=== PATIENT | female | born 1990 | race Asian ===

== ENCOUNTER 2018-04-16 07:28 | Emergency (ER) | payer OTHER ==
[2018-04-16] MEDS: dexameTHASONE 20 MG/5 ML VIAL (J1100) IV (08:18)
== END 2018-04-16 09:28 | disposition home or self-care (01) ==
LOC: M ED 07:28
DX: L27.0 Generalized skin eruption due to drugs and medicaments taken internally (principal); Z95.0 Presence of cardiac pacemaker; I45.10 Unspecified right bundle-branch block
CPT/HCPCS: J1100

== ENCOUNTER 2018-06-09 22:31 | Emergency (ER) | payer OTHER ==
[2018-06-10] MEDS: DOXYCYCLINE HYCLATE 100 MG TAB PO (00:09)
[2018-06-13 00:07] LABS: IgG P18 AB Absent (.); IgG P23 AB Absent (.); IgG P28 AB Absent (.); IgG P30 AB Absent (.); IgG P39 AB Absent (.); IgG P41 AB Absent (.); IgG P45 AB Absent (.); IgG P58 AB Absent (.); IgG P66 AB Absent (.); IgG P93 AB Absent (.); IgM P23 AB Absent (.); IgM P39 AB Absent (.); IgM P41 AB Absent (.); LYME IgG WB INTERPRETATION Negative (.); LYME IgM WB INTERPRETATION Negative (.)
== END 2018-06-10 00:41 | disposition home or self-care (01) ==
LOC: M ED 22:31
DX: S50.862A Insect bite (nonvenomous) of left forearm, initial encounter (principal); W57.XXXA Bitten or stung by nonvenomous insect and other nonvenomous arthropods, initial encounter; Y92.89 Other specified places as the place of occurrence of the external cause; Q24.9 Congenital malformation of heart, unspecified; Z95.0 Presence of cardiac pacemaker; Z79.899 Other long term (current) drug therapy
CPT/HCPCS: 86617

== ENCOUNTER 2018-06-27 19:16 | Inpatient (IN) | payer OTHER ==
[2018-06-27] MEDS: tiZANidine 4 MG TAB PO (21:00)
[2018-06-27 21:21] LABS: HEMATOCRIT 42.8 % (36.0-47.0); HEMOGLOBIN 14.5 g/dl (12.0-15.5); MEAN CORPUSCULAR HEMOGLOBIN 27.9 pg (27.0-33.0); MEAN CORPUSCULAR HGB CONC 33.9 g/dl (32.0-36.5); MEAN CORPUSCULAR VOLUME 82.5 fl (80.0-96.0); PLATELET COUNT, AUTOMATED 320 10^3/uL (150-450); RED BLOOD COUNT 5.19 10^6/uL (4.00-5.40); RED CELL DISTRIBUTION WIDTH 12.3 % (11.5-14.5); WHITE BLOOD COUNT 8.5 10^3/uL (4.0-10.0)
[2018-06-27 21:26] LABS: CONTROL LINE HCG INT CTR LINE PRESENT; HCG, SERUM QUALITATIVE NEGATIVE (NEGATIVE)
[2018-06-27 21:40] LABS: ALBUMIN 4.5 GM/DL (3.2-5.2); ALBUMIN/GLOBULIN RATIO 0.96 (1.00-1.93); ALKALINE PHOSPHATASE 93 U/L (45-117); ALT/SGPT 57 U/L (12-78); ANION GAP 9 MEQ/L (8-16); AST/SGOT 54 U/L (7-37); BILIRUBIN,DIRECT 0.1 MG/DL (0.0-0.2); BILIRUBIN,TOTAL 0.4 MG/DL (0.2-1.0); BLOOD UREA NITROGEN 11 MG/DL (7-18); CALCIUM LEVEL 9.5 MG/DL (8.5-10.1); CARBON DIOXIDE LEVEL 26 MEQ/L (21-32); CHLORIDE LEVEL 105 MEQ/L (98-107); CREATININE FOR GFR 0.85 MG/DL (0.55-1.30); ETHYL ALCOHOL (ETHANOL) < 0.003 % (0.000-0.010); GLOMERULAR FILTRATION RATE > 60.0 (>60); GLUCOSE, FASTING 95 MG/DL (70-100); POTASSIUM SERUM 3.8 MEQ/L (3.5-5.1); SALICYLATE LEVEL 2.1 MG/DL (5.0-30.0); SODIUM LEVEL 140 MEQ/L (136-145); TOTAL PROTEIN 9.2 GM/DL (6.4-8.2)
[2018-06-27 21:41] LABS: ACETAMINOPHEN LEVEL < 2.0 UG/ML (10.0-30.0)
[2018-06-27 22:06] LABS: AMPHETAMINES LEVEL URINE NEGATIVE (NEGATIVE); BARBITURATES URINE NEGATIVE (NEGATIVE); BENZODIAZEPINES URINE NEGATIVE (NEGATIVE); CANNABINOIDS URINE NEGATIVE (NEGATIVE); COCAINE METABOLITE URINE NEGATIVE (NEGATIVE); METHADONE URINE NEGATIVE (NEGATIVE); OPIATES URINE NEGATIVE (NEGATIVE); PHENCYCLIDINE URINE NEGATIVE (NEGATIVE)
[2018-06-27] MEDS ORDERED: LORazepam 1 MG TAB PO (22:30)
[2018-06-27] MEDS ORDERED: MAALOX 30 ML SUSP *UDC PO (22:30)
[2018-06-27] MEDS ORDERED: MOM 30ML SUSPENSION UDC PO (22:30)
[2018-06-27] MEDS ORDERED: ACETAMINOPHEN TAB 650MG DOSE (2X325MG) PO (22:30)
[2018-06-27] MEDS ORDERED: hydrOXYzine 25 MG TAB PO (22:30)
[2018-06-28] MEDS: VENLAFAXINE **XR** 75MG CAPSULE PO (08:09)
[2018-06-28] MEDS: traZODone 50 MG TAB PO (20:44)
[2018-06-28] MEDS: tiZANidine 4 MG TAB PO (20:44)
[2018-06-28] MEDS: ARIPiprazole 2 MG TAB PO (20:44)
[2018-06-29] MEDS: VENLAFAXINE **XR** 75MG CAPSULE PO (07:54)
[2018-06-29] MEDS: VITAMIN D 1,000 INTERNATIONAL UNITS TABLET PO (07:54)
[2018-06-29] MEDS: tiZANidine 4 MG TAB PO (21:32)
[2018-06-29] MEDS: ARIPiprazole 2 MG TAB PO (21:32)
[2018-06-30] MEDS: VITAMIN D 1,000 INTERNATIONAL UNITS TABLET PO (08:06)
[2018-06-30] MEDS: VENLAFAXINE **XR** 75MG CAPSULE PO (08:06)
[2018-06-30] MEDS: tiZANidine 4 MG TAB PO (21:17)
[2018-06-30] MEDS: ARIPiprazole 2 MG TAB PO (21:17)
[2018-07-01] MEDS: VENLAFAXINE **XR** 75MG CAPSULE PO (08:05)
[2018-07-01] MEDS: VITAMIN D 1,000 INTERNATIONAL UNITS TABLET PO (08:05)
[2018-07-01] MEDS: tiZANidine 4 MG TAB PO (21:18)
[2018-07-01] MEDS: traZODone 50 MG TAB PO (21:18)
[2018-07-01] MEDS: ARIPiprazole 2 MG TAB PO (21:18)
[2018-07-02] MEDS: VENLAFAXINE **XR** 75MG CAPSULE PO (08:23)
[2018-07-02] MEDS: VITAMIN D 1,000 INTERNATIONAL UNITS TABLET PO (08:23)
[2018-07-02] MEDS: ARIPiprazole 2 MG TAB PO (21:28)
[2018-07-02] MEDS: tiZANidine 4 MG TAB PO (21:28)
[2018-07-03] MEDS: VENLAFAXINE **XR** 75MG CAPSULE PO (08:05)
[2018-07-03] MEDS: VITAMIN D 1,000 INTERNATIONAL UNITS TABLET PO (08:05)
[2018-07-03] MEDS: tiZANidine 4 MG TAB PO (21:11)
[2018-07-03] MEDS: ARIPiprazole 2 MG TAB PO (21:11)
[2018-07-03] MEDS: traZODone 50 MG TAB PO (21:11)
[2018-07-04] MEDS: VENLAFAXINE **XR** 75MG CAPSULE PO (08:19)
[2018-07-04] MEDS: VITAMIN D 1,000 INTERNATIONAL UNITS TABLET PO (08:20)
== END 2018-07-04 10:45 | disposition home or self-care (01) | DRG 885 ==
LOC: M PSY 06-30 18:49 → M ED 19:16 → M ED INP 22:21 → M PSY 23:09
DX: F33.3 Major depressive disorder, recurrent, severe with psychotic symptoms (principal); F10.10 Alcohol abuse, uncomplicated; Z79.899 Other long term (current) drug therapy; E55.9 Vitamin D deficiency, unspecified

== ENCOUNTER 2018-08-05 01:20 | Emergency (ER) | payer OTHER ==
[2018-08-05] MEDS: methylPREDNISolone INJ 125 MG/2 ML VIAL (J2930) IM (06:19)
== END 2018-08-05 06:43 | disposition home or self-care (01) ==
LOC: M ED 01:20
DX: J45.901 Unspecified asthma with (acute) exacerbation (principal); F32.9 Major depressive disorder, single episode, unspecified; Q21.3 Tetralogy of Fallot; Z95.0 Presence of cardiac pacemaker; Z88.8 Allergy status to other drugs, medicaments and biological substances; Z79.899 Other long term (current) drug therapy
CPT/HCPCS: J2930

== ENCOUNTER → 2018-09-24 | Outpatient (CLI) | payer OTHER | LOC: M LRY 17:07 | DX: M79.642 Pain in left hand (principal) | CPT/HCPCS: 73130; G0463 ==

== ENCOUNTER → 2018-10-03 | Outpatient (REF) | LOC: M SMT 10:11 | DX: Z00.00 Encounter for general adult medical examination without abnormal findings (principal) ==

== ENCOUNTER 2018-10-20 08:21 | Emergency (ER) | payer OTHER ==
[~2018-10-20] VITALS: Ht 144.8 cm; Wt 54.5 kg
[~2018-10-20 08:21] MED LIST: ALIG4CAP; ALIG4CAP PO; ARIP2TAB PO; D 50CAP PO; DOXY-350 PO; HYDR-3363 PO; IBUP1TAB7 PO; L-ME1TAB PO; LAMI50TA PO; LIDO5TD TD; PARAIUD IU; PRED20TA PO; PROBCAP14 PO; TIZA4CAP PO; VENL150C43 PO; VENL75CA47 PO; ZITHTAB PO
[2018-10-20] MEDS ORDERED: ABIL10TA9 PO (08:28)
[2018-10-20] MEDS ORDERED: ONDANSETRON 4 MG ORAL DISINTEGRATING TAB (Q0162 PER 1MG) PO ONE (08:45)
--- NOTE | 2018-10-20 08:57 | REP ---
Clinical: Acute migraine headaches . Comparison: None . Findings: The ventricles, sulci, and cisterns are normal in position and appearance. Amaro-white differentiation is maintained. No acute intracranial hemorrhage, mass/mass effect, pathology or trauma/injury. No evidence for acute infarction. No extra-axial fluid collection. Calvarium is intact. Paranasal sinuses and mastoid air cells are clear. Impression: Normal noncontrast head CT. No evidence for acute intracranial pathology or trauma/injury. Electronically Signed by Dixon Osborn MD 10/20/2018 08:49 A
[2018-10-20] MEDS ORDERED: KETOROLAC 30 MG/ML VIAL (J1885) IV ONE (09:00)
[2018-10-20] MEDS ORDERED: diphenhydrAMINE INJ 50MG/ML VIAL (J1200) IV ONE (09:00)
[2018-10-20 09:59] VITALS: BP 121/69
== END 2018-10-20 10:00 | disposition home or self-care (01) ==
LOC: M ED 08:21
DX: G43.909 Migraine, unspecified, not intractable, without status migrainosus (principal); J45.909 Unspecified asthma, uncomplicated; F41.9 Anxiety disorder, unspecified; F32.9 Major depressive disorder, single episode, unspecified; F31.9 Bipolar disorder, unspecified; Z95.0 Presence of cardiac pacemaker; Z95.4 Presence of other heart-valve replacement
CPT/HCPCS: 70450; 96374; 96375; 99284; J1200; J1885; Q0162

== ENCOUNTER 2019-03-18 08:39 | Emergency (ER) | payer OTHER ==
[~2019-03-18] VITALS: Ht 144.8 cm; Wt 50.9 kg
[~2019-03-18 08:39] MED LIST changes: +ABIL10TA9 PO; +ARIP1TAB4 PO; -ARIP2TAB PO
[2019-03-18] MEDS ORDERED: HYDR-3363 (08:48)
[2019-03-18] MEDS ORDERED: PROAAER10 INH (09:13)
[2019-03-18] MEDS ORDERED: PRED20TA PO ×2 (09:13→10:06)
[2019-03-18] MEDS: IPRATROPIUM 0.5MG/ALBUTEROL 2.5MG INH SOL UD 3ML (DUONEB)(J7620) NEB PRN ×2 (09:20→09:33)
[2019-03-18] MEDS ORDERED: BREAMIS10 MC (10:07)
[2019-03-18] MEDS ORDERED: FLON1SPR NARES (10:07)
[2019-03-18 10:12] VITALS: BP 130/74
== END 2019-03-18 10:17 | disposition home or self-care (01) ==
LOC: M ED 08:39
DX: J45.901 Unspecified asthma with (acute) exacerbation (principal); J30.9 Allergic rhinitis, unspecified; F31.9 Bipolar disorder, unspecified; Z87.891 Personal history of nicotine dependence; Z79.899 Other long term (current) drug therapy; Z88.8 Allergy status to other drugs, medicaments and biological substances

== ENCOUNTER → 2019-05-22 | Outpatient (CLI) | payer OTHER ==
[~2019-05-22] MED LIST changes: +BREAMIS10 MC; +FLON1SPR NARES; +HYDR-3363; +PROAAER10 INH
--- NOTE | 2019-05-23 03:50 | REP ---
Clinical: Chest pain. Technique: PA and lateral. Comparison: 08/05/2018. Findings: Stable cardiomegaly with evidence of prior sternotomy and pacemaker. Lung conner are clear. No focal consolidation, effusion, or pneumothorax. Skeletal structures intact. Impression: Chronic stable changes. Electronically Signed by Dixon Osborn MD 05/23/2019 03:41 A
== END ==
LOC: M WUC 11:54
PROVIDERS: ATTEND Family Medicine Adult Medicine
DX: Z11.1 Encounter for screening for respiratory tuberculosis (principal)

== ENCOUNTER → 2019-07-09 | Outpatient (REF) | payer OTHER | LOC: M SFHCLERA 17:50 | PROVIDERS: ATTEND Nurse Practitioner Family | DX: J02.9 Acute pharyngitis, unspecified (principal) ==

== ENCOUNTER 2019-08-04 20:59 | Emergency (ER) | payer OTHER ==
[~2019-08-04] VITALS: Ht 144.8 cm; Wt 52.4 kg
[~2019-08-04 20:59] MED LIST changes: +PARA1IUD IU; -PARAIUD IU
[2019-08-04 21:31] LABS: BASO # 0.1 10^3/uL (0.0-0.2); BASO % 0.8 % (0.0-1.0); EOS # 1.1 10^3/uL (0.0-0.5); EOS % 11.1 % (0.0-3.0); HEMATOCRIT 38.1 % (36.0-47.0); HEMOGLOBIN 12.1 g/dl (12.0-15.5); LYMPH # 2.9 10^3/uL (1.5-5.0); LYMPH % 29.4 % (24.0-44.0); MEAN CORPUSCULAR HEMOGLOBIN 23.4 pg (27.0-33.0); MEAN CORPUSCULAR HGB CONC 31.8 g/dl (32.0-36.5); MEAN CORPUSCULAR VOLUME 73.7 fl (80.0-96.0); MONO # 0.6 10^3/uL (0.0-0.8); MONO % 6.2 % (0.0-5.0); NEUTROPHILS # 5.2 10^3/uL (1.5-8.5); NEUTROPHILS % 52.3 % (36.0-66.0); PLATELET COUNT, AUTOMATED 309 10^3/uL (150-450); RED BLOOD COUNT 5.17 10^6/uL (4.00-5.40); WHITE BLOOD COUNT 9.9 10^3/uL (4.0-10.0)
[2019-08-04 21:52] LABS: ALBUMIN 3.8 GM/DL (3.2-5.2); ALT/SGPT 37 U/L (12-78); BILIRUBIN,DIRECT < 0.1 MG/DL (0.0-0.2); BILIRUBIN,TOTAL 0.2 MG/DL (0.2-1.0); BLOOD UREA NITROGEN 13 MG/DL (7-18); CALCIUM LEVEL 8.6 MG/DL (8.5-10.1); CARBON DIOXIDE LEVEL 25 MEQ/L (21-32); CHLORIDE LEVEL 103 MEQ/L (98-107); CK-MB VALUE MASS < 1.0 NG/ML (<3.6); CPK CREATINE PHOSPHOKINASE 117 U/L (26-192); CREATININE FOR GFR 0.85 MG/DL (0.55-1.30); GLOMERULAR FILTRATION RATE > 60.0 (>60); GLUCOSE, FASTING 90 MG/DL (70-100); LIPASE 244 U/L (73-393); MB/CK RELATIVE INDEX 0.85 (< OR =4); NT-PRO BNP 62 PG/ML (<125); POTASSIUM SERUM 3.9 MEQ/L (3.5-5.1); SODIUM LEVEL 136 MEQ/L (136-145); TOTAL PROTEIN 7.7 GM/DL (6.4-8.2); TROPONIN I < 0.02 NG/ML (< 0.10)
[2019-08-05] MEDS ORDERED: ISOVUE-370 76% 100ML VIAL (Q9967) As Ordered ONE (00:09)
--- NOTE | 2019-08-05 00:24 | ECGEPIP ---
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
--- NOTE | 2019-08-05 01:28 | REPVR ---
PROCEDURE INFORMATION: Exam: CT Angiography Chest With Contrast Exam date and time: 08/05/2019 1:00 AM Clinical history: 29 years old, female; Chest pain TECHNIQUE: Imaging protocol: Computed tomographic angiography of the chest with intravenous contrast. 3D rendering: MIP reconstructed images were created and reviewed. Radiation optimization: All CT scans at this facility use at least one of these dose optimization techniques: automated exposure control; mA and/or kV adjustment per patient size (includes targeted exams where dose is matched to clinical indication); or iterative reconstruction. Contrast material: ISO 370; Contrast volume: 75 ml; Contrast route: IV; COMPARISON: CR PORTABLE CHEST X-RAY 08/04/2019 9:18 PM FINDINGS: Pulmonary arteries: The main pulmonary artery measures 24 mm. No pulmonary embolism is identified. Aorta: The ascending thoracic aorta measures 27 mm. Lungs: Minimal left base fibro-atelectatic change. Pleural space: Unremarkable. No pneumothorax. No pleural effusion. Heart: Unremarkable. No cardiomegaly. No pericardial effusion. 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 Pacemaker in position from the left. Lymph nodes: Unremarkable. No enlarged lymph nodes. Bones/joints: Status post sternotomy, probably at a young age with relatively small wire sutures. Soft tissues: Unremarkable. IMPRESSION: 1. 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 2. Minimal left base fibro-atelectatic change. 3. Otherwise negative CTA chest. No pulmonary embolism is identified. Electronically signed by: Felipe Davis On 08/05/2019 01:28:15 AM
[2019-08-05 02:04] LABS: CK-MB VALUE MASS < 1.0 NG/ML (<3.6); CPK CREATINE PHOSPHOKINASE 97 U/L (26-192); MB/CK RELATIVE INDEX 1.03 (< OR =4); TROPONIN I < 0.02 NG/ML (< 0.10)
[2019-08-05 03:05] VITALS: BP 108/69
--- NOTE | 2019-08-05 07:55 | REP ---
Portable chest, 09:21 p.m., single AP view with the patient upright: Comparison is 05/22/2019. Cardiomegaly, sternotomy wires and triple lead pacemaker are all unchanged. Lung conner are clear. The anselmo, mediastinum, skeletal structures are unremarkable. Impression: There are no acute cardiopulmonary findings. There is chronic cardiomegaly. Sternotomy wires, triple lead pacemaker are unchanged. Electronically Signed by Montrell Castañeda MD 08/05/2019 07:47 A
--- NOTE | 2019-08-06 00:30 | ECGEPIP ---
[facility] - ED Test Date: 2019-08-05 Pat Name: DOLORES DERAS Department: Room: - Gender: Female Flight Deck Officer: HERMINIO : 1990 Requested By: EDIS Oliver Order Number: [id number] Reading MD: Edis Mckeon Measurements Intervals [place] Rate: 69 P: 101 AK: 205 QRS: 28 QRSD: 175 T: 58 QT: 490 QTc: 528 Interpretive Statements ELECTRONIC ATRIAL PACEMAKER RIGHT BUNDLE BRANCH BLOCK Similar to tracing done 08-04-19 Electronically Signed on 08-06-2019 0:29:39 EDT by Edis Mckeon
== END 2019-08-05 03:11 | disposition home or self-care (01) ==
LOC: M ED 20:59
DX: R07.89 Other chest pain (principal); Z95.2 Presence of prosthetic heart valve; Z95.0 Presence of cardiac pacemaker; Q21.3 Tetralogy of Fallot; Z88.8 Allergy status to other drugs, medicaments and biological substances; Z79.899 Other long term (current) drug therapy
CPT/HCPCS: 71045; 71275; 80048; 80076; 82550; 82553; 83690; 83880; 84484; 85025; 93005; 93041; 94760; 99285; Q9967

== ENCOUNTER → 2019-09-01 | Outpatient (CLI) | payer OTHER ==
--- NOTE | 2019-09-01 16:08 | REP ---
Clinical: Trauma. Technique: AP, lateral, bilateral oblique and sunrise views. Findings: The osseous structures and joint spaces are intact and normal. There is no evidence for acute fracture or dislocation. No joint effusion is appreciated. Surrounding soft tissues are unremarkable. No subcutaneous emphysema or radiodense foreign body. Impression: Normal examination. No acute fracture or dislocation. Electronically Signed by Dixon Osborn MD 09/01/2019 04:00 P
== END ==
LOC: M LRY 15:34
PROVIDERS: ATTEND Physician Assistant
DX: M25.561 Pain in right knee (principal)
CPT/HCPCS: 73564; G0463